=== PATIENT | male | born 1955 | race Caucasian/White ===

== ENCOUNTER 2025-01-28 00:55 | Day surgery (SDC) | payer MEDICARE, SELFPAY ==
[2024-11-19 13:59] VITALS: BMI 27.7
--- NOTE | 2025-01-20 10:56 | PC.NURSE ---
Patient states no new health history since completion of last PAT call on 11/19/24.
--- OUTSIDE RECORDS SUMMARY | 2025-01-28 00:59 | XMS_ITS | Clinical Summary ---
Author Organization [facility] Address [address] [place] [phone] Phone Care Team Providers Care Chain Offbearer Name Role Phone Unavailable Primary Care Provider Unavailabl e Social History Tobacco Use Types Packs/Day Years Used Date Smoking Tobacco: Never Assessed Sex and Gender Information Value Date Recorded Sex Assigned at Not on file Legal Sex Male 12:03 PM CDT Gender Identity Not on file Sexual Orientation Not on file Plan of Treatment Health Maintenance Due Date Last Done Comments DTAP/TDAP/TD VACCINES (1 - Tdap) 1976 COLORECTAL SCREENING 2002 Colorectal Cancer Screening 2002 FIT-DNA Q 3 years 2002 FIT/FOBT Q 1 year 2002 Flex Sig/CT Colonography Q 5 years 2002 PNEUMOCOCCAL VACCINE 50+ YEARS (1 of 1 - PCV) 05/26/20 07 ZOSTER VACCINE (1 of 2) 2007 INFLUENZA VACCINE (#1) 2024 RSV VACCINE (60+ or ) (1 - 1-dose 75+ series) 2032
--- OUTSIDE RECORDS SUMMARY | 2025-01-28 00:59 | XMS_ITS | Clinical Summary ---
Author Organization [facility] Address [facility] [place] [address] Care Team Providers Care Attendant [facility] Name Role Phone Kayli Lepe Primary Care Provider [phone] Allergies No known active allergies Medications fenofibrate (TRICOR) 145 MG tablet Take 1 tablet (145 mg total) by mouth daily. 08/18/2022 Active olmesartan (BENICAR) 20 MG tablet Take 1 tablet (20 mg total) by mouth daily. 08/18/2022 Active HYDROcodone-freddy taminophen (NORCO) 5-325 MG tablet Take 1 tablet by mouth every 6 (six) hours as needed for Pain. Active vitamin C (ASCORBIC ACID) 500 MG tablet Take 1 tablet (500 mg total) by mouth daily. Active Vitamin D3 (VITAMIN D) 50 mcg tablet Take 1 tablet (50 mcg total) by mouth daily. Active Vitamin E 200 UNITS capsule Take 1 capsule (200 Units total) by mouth daily. Active Multiple Vitamins-Minera ls (MENS 50+ MULTI VITAMIN/MIN) Tab Take 1 capsule by mouth daily. Active omega-3 fatty acid (FISH OIL) 500 MG capsule Take 1 capsule (500 mg total) by mouth daily. 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 The only thing proven to slow the progression of osteoarthritis is weight loss. Every pound lost relieves 4 to 6 pounds of stress across the knee. We discussed unloading braces. Formal physical therapy to help with flexibility, mobility, and strength. We discussed TENS units. Nonsteroidal anti-inflammatories as well as Tylenol and pain medication and their side effects. We discussed steroid versus Visco supplement injection. We discussed eventual total knee arthroplasty. We'll get him set up for an MRI of the lumbar spine with an EMG-NCV for the numbness and tingling. We'll see him back after the tests. He'd like to hold off on any injections to the knee just in case he needs to proceed with total knee arthroplasty. Compression fracture of T12 vertebra, initial encounter ([facility]) 10/21/2024 Scoliosis of lumbar region d ue to degenerative disease of spine in adult 10/21/2024 Sepsis ([facility]) 06/08/2024 Acute abdomen 06/07/2024 Encounters Date Type Department Care Team Description 12/10/2024 Telephone [facility] - [address] [place] [address] Freddy Wheeler MD Reschedule from Last 3 Months Family History Medical History Relation Comments Cancer Father Hypertension Mother Crohns Disease Sister Relation Status Comments Father Mother Sister Social History Tobacco Use Types Packs/Day Years Used Date Smoking Tobacco: Never Smokeless Tobacco: Never Tobacco Cessation:Counseling Given: No Alcohol Use Standard Drinks/Week Comments Yes 0 (1 standard drink = 0.6 oz pur e alcohol) socially [id number] Health Literacy Answer Date Recor ded How often do you need to hav e someone help you when you read instructions, pamphlets, or other written material from your doctor or pharmacy? Often 06/08/2024 [facility] Utilities Answer Date Recorded In the past 12 months has e [employer], gas, oil, or water [employer] threatened to shut off services in your home? No 06/08/2024 Humiliation, Afraid, Rape, and Kick questionnair e Answer Date Recorded Within the last year, have y ou been afraid of your partner or ex-partner? No 06/08/2024 Within the last year, have y ou been humiliated or emotionally abused in other ways by your partner or ex-partner? No Within the last year, have y ou been kicked, hit, slapped, or otherwise physically hurt by your partner or ex-partner? No 06/08/2024 Within the last year, have y ou been raped or forced to have any kind of sexual activity by your partner or ex-partner? No 06/08/2024 Social Connection and Isolation Panel [NHANES] A nswer Date Recorded In a typical week, how many times do you talk on the phone with family, friends, or neighbors? Once a week 06/08/2024 How often do you get together with friends or re latives? Never 06/08/2024 How often do you attend pentecostalism or restorationism serv ices? Never 06/08/2024 Do you belong to any clubs o r organizations such as pentecostalism groups, unions, fraternal or athletic groups, or school groups? No 06/08/2024 How often do you attend meet ings of the clubs or organizations you belong to? Never 06/08/2024 Are you , , di vorced, , never , or living with a partner? 06/08/2024 AUDIT-C Answer Date Recorded Q1: How often do you have a drink containing alc ohol? Monthly or less 06/08/2024 Q2: How many drinks containi ng alcohol do you have on a typical day when you are drinking? 1 or 2 06/08/2024 Q3: How often do you have si x or more drinks on one occasion? Less than monthly 06/08/2024 Overall Financial Resource Strain (CARDIA) Answe r Date Recorded How hard is it for you to pa y for the very basics like food, housing, medical care, and heating? Not hard at all 06/08/2024 PHQ-2 Answer Date Recorded Patient Health Questionnaire-2 Score 0 06/08/2024 [facility] Occupat ional Health - Occupational Stress Questionnaire Answer Date Recorded Do you feel stress - tense, restless, nervous, or anxious, or unable to sleep at night because your mind is troubled all the time - these days? Not at all 06/08/2024 Exercise Vital Sign Answer Date Recorde d On average, how many days pe r week do you engage in moderate to strenuous exercise (like a brisk walk)? 7 days 06/08/2024 On average, how many minutes do you engage in exercise at this level? 60 min 06/08/2024 Hunger Vital Sign Answer Date Recorded Within the past 12 months, y ou worried that your food would run out before you got the money to buy more. Never true 06/08/20 24 Within the past 12 months, t he food you bought just didn't last and you didn't have money to get more. Never true 06/08/2024 PRAPARE - Transportation Answer Date Re corded In the past 12 months, has l ack of transportation kept you from medical appointments or from getting medications? No 05/30 In the past 12 months, has l ack of transportation kept you from meetings, work, or from getting things needed for daily living? No 06/08/2024 Housing Stability Vital Sign Answer Adonay e Recorded In the last 12 months, was t here a time when you were not able to pay the mortgage or rent on time? No 06/08/2024 In the past 12 months, how m any times have you moved where you were living? 1 06/08/2024 At any time in the past 12 m [facility], were you homeless or living in a fci (including now)? 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 Respiratory Rate 20 07/11/2024 2:49 PM CDT Oxygen Saturation 92% 10/21/2024 1:47 PM 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 Inhaled Oxygen Concentration - - Weight 83.1 kg (183 lb 3.2 oz) 10/21/2024 1:47 P M 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 Height 172.7 cm (5' 8 ) 10/21/2024 1:47 PM 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 Body Mass Index 27.86 10/21/2024 1:47 PM 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 Plan of Treatment Health Maintenance Due Date Last Done Comments Colorectal Cancer Screening Colonoscopy (10 Years) 1957 Hepatitis C 1975 DTaP, Tdap and Td Vaccines ( 1 - Tdap) 1976 Zoster Vaccines (1 of 2) 2007 Annual Medicare Wellness Visit 2022 Pneumococcal Vaccine: 65+ Ye ars (1 of 1 - PCV) 2022 COVID-19 Vaccine (1 - 2023-2 5 season) 2024 PHQ-2 (Physician [place]) 10/30/2024 06/08/2024 RSV Immunization or 60+ Years (1 - 1-dose 75+ series) 2032 Meningococcal B Vaccine Aged Out No l onger eligible based on patient's age to complete this topic Meningococcal Vaccine Aged Out No hai maggie eligible based on patient's age to complete this topic RSV Immunizations Under 20 Months Aged Out No longer eligible based on patient's age to complete this topic Insurance MEDICARE [facility] [employer] Advance Directives * Full Code (Latest Code Status on File) Date Activated Date Inactivated Comments 06/08/2024 12:00 AM 06/13/2024 3:29 PM Care Teams Attendant [facility] Relationship Specialty Start Date End Date Kayli Lepe PA [address] [place] [id number] PCP - General PHYSICIAN RADIATION THERAPY TECHNOLOGIST 10/22/22
[2025-01-28 08:47] VITALS: BP 148/85; PULSE 80; RESP 18; TEMP 36.2; O2SAT 97; BMI 27.1
[2025-01-28] MEDS: LACTATED RINGERS 1,000 ML 150 ML IV CONT (08:51)
--- NOTE | 2025-01-28 08:52 | P.PNAN_ITS ---
Anes - Initial Pre Proc Eval Procedure: Operation Date: 01/28/25 12:30 Proposed Procedures p Esophagogastroduodenoscopy&Screen Colon - Kenny Yañez MD Date/Time: 01/28/25 08:52 Surgeon: Kenny Yañez MD Pre Op Diagnosis: screening malignant neoplasm colon Patient Data Age: 69 Gender: M Height: 1.73 m Weight: 81 kg Last Vital Signs Temp 97.2 F L 01/28/25 08:47 Pulse 80 01/28/25 08:47 Resp 18 01/28/25 08:47 BP 148/85 H 01/28/25 08:47 Pulse Ox 97 01/28/25 08:47 O2 Del Method Room Air 01/28/25 08:47 Allergies Allergy/AdvReac Type Severity Reaction Status Date / Time lisinopril Allergy Cough Verified 01/28/25 08:45 tramadol AdvReac Gastrointestinal Verified 01/28/25 08:45 Upset Home Medications ?Medication ?Instructions ?Recorded ?Confirmed ?Type omega 7-ypz-qtz-fish oil 1,200 mg 1 cap PO DAILY 03/04/24 01/28/25 History (144 mg-216 mg) capsule (Fish Oil) omeprazole 20 mg tablet,delayed 20 mg PO DAILY Esophagitis on CT 07/09/24 01/28/25 History release from May 2024 losartan 100 mg tablet 100 mg PO DAILY #90 tabs 08/13/24 01/28/25 Rx hydrocodone 5 mg-acetaminophen 325 1 tablet PO Q6H PRN pain #30 tabs 10/28/24 01/28/25 Rx mg tablet fenofibrate nanocrystallized 145 145 mg PO QHS #90 tabs 01/06/25 01/28/25 Rx mg tablet Patient hx anesthesia problems: none Family hx anesthesia problems: none Results Review: All pre-operative results and documents have been reviewed as part of the pre- operative evaluation. [facility] Past Medical History Medical History Meckel diverticulitis (~05/2024) perforation requiring partial small bowel resection CAP (community acquired pneumonia) Hypersomnia Family history of early CAD CKD (chronic kidney disease) stage 3, GFR 30-59 ml/min Vitamin B12 deficiency Dyslipidemia Hypertension Chronic low back pain Surgical History Surgical History H/O colonoscopy H/O knee surgery H/O hernia repair Family History Family History Father Hypertension Family history of diabetes mellitus in first degree relative Diabetes mellitus Family history of lung cancer Mother Hypertension Sibling Family history of gastrointestinal disorder Other Family history of cardiovascular disease Social History Social History Social History: 07/02/24 patient somewhat confident with medical forms Smoking status: Never smoker Alcohol intake: never Alcohol use details: rarely Substance use: current Substance use type: opiates Other substance usage details: CBD oil - helps with the pain Last use: daily Do You Feel Safe in your Home?: Yes Lack of Transportation: No Lack of Food: Never True Current Housing: I Have Housing Concerned About Future Housing: No Difficulty Paying Gas/Electric Bills: No Difficulty Paying for Meds: No Currently Unemployed: No Education: Decline to Answer Difficulty w/ Childcare or Family Care: No Living arrangements: alone Occupation/Education: occupation Gender identity (if verbalized by the patient): Male Spiritual care concerns: No Anes - Eval Final PreProcedure Day of Procedure 01/28/25 08:52 Patient weight: overweight Lungs: normal air movement Airway: Mallampati scale class II Neurological: alert and oriented Last oral intake: >/= 8 hours ASA classification: III Emergent: no Anesthetic plan: proceed Anesthesia type and monitoring: general GIVS and standard monitoring Results Review: All pre-operative results and documents have been reviewed as part of the pre- operative evaluation. 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 Informed Consent: The patient's anesthetic plan and its attendant risks and benefits were discussed with the patient/family/POA. Questions were solicited and answers provided to the satisfaction of the patient/family/POA.
--- NOTE | 2025-01-28 09:11 | PM.HPGS ---
History of Present Illness History of Present Illness Consent: Risks, benefits, and alternatives have been discussed and questions answered. Patient agrees to proceed with procedure. Chief complaint: screening malignant neoplasm colon Narrative: Jim Miller . is a 69 year old male with gerd controlled on omeprazole, last colonoscopy 10 years ago Review of Systems Review of Systems: All systems reviewed & are unremarkable except as noted in HPI and below PMFSH Past Medical History Medical History (Updated 01/28/25 @ 09:14 by Kenny Yañez MD) GERD (gastroesophageal reflux disease) Meckel diverticulitis (~05/2024) perforation requiring partial small bowel resection CAP (community acquired pneumonia) Hypersomnia Family history of early CAD CKD (chronic kidney disease) stage 3, GFR 30-59 ml/min Vitamin B12 deficiency Dyslipidemia Hypertension Chronic low back pain Surgical History Surgical History H/O colonoscopy H/O knee surgery H/O hernia repair Family History Family History Father Hypertension Family history of diabetes mellitus in first degree relative Diabetes mellitus Family history of lung cancer Mother Hypertension Sibling Family history of gastrointestinal disorder Other Family history of cardiovascular disease Social History Social History Social History: 07/02/24 patient somewhat confident with medical forms Smoking status: Never smoker Alcohol intake: never Alcohol use details: rarely Substance use: current Substance use type: opiates Other substance usage details: CBD oil - helps with the pain Last use: daily Do You Feel Safe in your Home?: Yes Lack of Transportation: No Lack of Food: Never True Current Housing: I Have Housing Concerned About Future Housing: No Difficulty Paying Gas/Electric Bills: No Difficulty Paying for Meds: No Currently Unemployed: No Education: Decline to Answer Difficulty w/ Childcare or Family Care: No Living arrangements: alone Occupation/Education: occupation Gender identity (if verbalized by the patient): Male Spiritual care concerns: No Meds Home Medications and Allergies Home Medications ?Medication ?Instructions ?Recorded ?Confirmed ?Type omega 5-tbe-rzh-fish oil 1,200 mg 1 cap PO DAILY 03/04/24 01/28/25 History (144 mg-216 mg) capsule (Fish Oil) omeprazole 20 mg tablet,delayed 20 mg PO DAILY Esophagitis on CT 07/09/24 01/28/25 History release from May 2024 losartan 100 mg tablet 100 mg PO DAILY #90 tabs 08/13/24 01/28/25 Rx hydrocodone 5 mg-acetaminophen 325 1 tablet PO Q6H PRN pain #30 tabs 10/28/24 01/28/25 Rx mg tablet fenofibrate nanocrystallized 145 145 mg PO QHS #90 tabs 01/06/25 01/28/25 Rx mg tablet Allergies Allergy/AdvReac Type Severity Reaction Status Date / Time lisinopril Allergy Cough Verified 01/28/25 08:45 tramadol AdvReac Gastrointestinal Verified 01/28/25 08:45 Upset Vital Signs Vital Signs - 24 hr 01/28/25 08:47 Temperature 97.2 F L Pulse Rate 80 Respiratory Rate 18 Blood Pressure 148/85 H Pulse Oximetry 97 Oxygen Delivery Room Air Exam Const: General: comfortable and no acute distress HENMT: Face/Nose/Sinus: Normal nares present Eyes: General: appearance normal, both eyes and all related structures Neck: Neck: no JVD Resp: Auscultation: clear to auscultation bilaterally Cardio: Rate: regular rate Rhythm: regular rhythm GI: Inspection: non-distended GI Palp: Yes Soft to palpation Skin: General skin exam: normal color Neuro: Speech: normal speech Extrem: General: normal to inspection Psych: Mental Status: mental status grossly normal Assessment and Plan Assessment and plan (1) Screening for colon cancer: Code(s): Z12.11 - Encounter for screening for malignant neoplasm of colon Status: Acute Assessment and Plan: colonoscopy (2) GERD (gastroesophageal reflux disease): Code(s): K21.9 - Gastro-esophageal reflux disease without esophagitis Status: Acute Assessment and Plan: egd
[2025-01-28 09:34] VITALS: BP 142/92; PULSE 65; RESP 24; O2SAT 96
--- NOTE | 2025-01-28 09:34 | SUR.OPER ---
EGD START 917, END 919 COLONOSCOPY START 922, END 931
[2025-01-28 09:44] VITALS: BP 144/89; PULSE 64; RESP 15; O2SAT 96
[2025-01-28 09:54] VITALS: BP 138/90; PULSE 65; RESP 15; O2SAT 98
== END 2025-01-28 10:28 | disposition home or self-care (01) ==
PROVIDERS: PCP Physician Assistant Medical; Referring Provider Physician Assistant Medical; Visit Provider Internal Medicine Gastroenterology
PROC: 0DJ08ZZ Inspection of Upper Intestinal Tract, Via Natural or Artificial Opening Endoscopic (ICD-10-PCS; CPT 45378; principal; 2025-01-28 12:30)
DX: Z12.11 Encounter for screening for malignant neoplasm of colon (principal); D12.4 Benign neoplasm of descending colon; K64.8 Other hemorrhoids; K57.30 Diverticulosis of large intestine without perforation or abscess without bleeding; K21.9 Gastro-esophageal reflux disease without esophagitis; K31.89 Other diseases of stomach and duodenum; I12.9 Hypertensive chronic kidney disease with stage 1 through stage 4 chronic kidney disease, or unspecified chronic kidney disease; N18.30 Chronic kidney disease, stage 3 unspecified; E78.5 Hyperlipidemia, unspecified; E53.8 Deficiency of other specified B group vitamins; G89.29 Other chronic pain; M54.50 Low back pain, unspecified; G47.10 Hypersomnia, unspecified; Z79.891 Long term (current) use of opiate analgesic; Z98.890 Other specified postprocedural states; Z87.19 Personal history of other diseases of the digestive system; Z80.1 Family history of malignant neoplasm of trachea, bronchus and lung; Z82.49 Family history of ischemic heart disease and other diseases of the circulatory system
CPT/HCPCS: 43239; 45385; 88305; J2003; J2704; J7120